=== PATIENT | female | born 1990 | race Caucasian/White ===

== ENCOUNTER 2017-12-08 11:58 | Emergency (ER) | payer MEDICAID ==
[~2017-12-08] VITALS: Ht 160 cm; Wt 71.0 kg
[2017-12-08] MEDS ORDERED: ketorolac trometh inj. 60 MG/2 ML VIAL IM ONE (13:30)
[2017-12-08] MEDS ORDERED: acetaminophen w/codeine (60MG) #4 tablet PO ONE (13:30)
[2017-12-08] MEDS ORDERED: acetaminophen w/codeine (30MG) #3 tablet PO ONE (13:40)
[2017-12-08] MEDS ORDERED: ACET-3067 PO (14:25)
[2017-12-08 14:33] VITALS: BP 131/82
== END 2017-12-08 14:37 | disposition home or self-care (01) ==
LOC: ER 11:59
DX: M54.2 Cervicalgia (principal); G89.29 Other chronic pain; M62.830 Muscle spasm of back; M54.5 Low back pain; M54.6 Pain in thoracic spine; Z88.5 Allergy status to narcotic agent
CPT/HCPCS: 72040; 96372; 99284; J1885

== ENCOUNTER 2018-01-05 17:53 | Emergency (ER) | payer MEDICAID ==
[~2018-01-05] VITALS: Ht 160 cm; Wt 70.0 kg
[~2018-01-05 17:53] MED LIST: ACET-3067 PO
[2018-01-05] MEDS ORDERED: CYCL-1 PO (18:36)
[2018-01-05] MEDS ORDERED: METH4TAB3 PO (18:36)
== END 2018-01-05 18:58 | disposition home or self-care (01) ==
LOC: ER 17:55
DX: M54.2 Cervicalgia (principal); M62.838 Other muscle spasm; M43.6 Torticollis; G89.29 Other chronic pain; Z88.5 Allergy status to narcotic agent
CPT/HCPCS: 99283

== ENCOUNTER 2018-01-25 12:10 | Emergency (ER) | payer MEDICAID ==
[~2018-01-25] VITALS: Ht 160 cm; Wt 69.2 kg
[~2018-01-25 12:10] MED LIST changes: -ACET-3067 PO; +CYCL-1 PO; +METH4TAB3 PO
[2018-01-25 12:16] VITALS: BP 123/84
[2018-01-25] MEDS ORDERED: tetanus & diphtheria toxoid (Td) vaccine 0.5ml IMVAC ONE (14:25)
[2018-01-25] MEDS ORDERED: CEPH-572 PO (14:28)
[2018-01-25] MEDS ORDERED: IBUP-1984 PO (14:28)
[2018-01-25] MEDS ORDERED: TETanus/Pertussis (Acell)/Diphther VAC/PF (Tdap-Adult) 0.5ml syringe IMVAC ONE (14:40)
== END 2018-01-25 14:55 | disposition home or self-care (01) ==
LOC: ER 12:11
DX: S62.633A Displaced fracture of distal phalanx of left middle finger, initial encounter for closed fracture (principal); G89.29 Other chronic pain; Z88.5 Allergy status to narcotic agent; Z79.899 Other long term (current) drug therapy; X58.XXXA Exposure to other specified factors, initial encounter; Y93.89 Activity, other specified; Y92.89 Other specified places as the place of occurrence of the external cause; Y99.8 Other external cause status
CPT/HCPCS: 29130; 73140; 90471; 90715; 99284

== ENCOUNTER 2018-04-09 11:15 | Emergency (ER) | payer MEDICAID ==
[~2018-04-09] VITALS: Ht 160 cm; Wt 70.6 kg
[2018-04-09 12:02] LABS: BASOPHILS % (AUTO) 0.5 % (0-1); EOSINOPHILS # (AUTO) 0.2 X10'3 (0-0.9); EOSINOPHILS % (AUTO) 3.7 % (0-6); HEMATOCRIT 30.7 % (35.0-45.0); LYMPHOCYTES # (AUTO) 1.4 X10'3 (1.1-4.8); LYMPHOCYTES % (AUTO) 20.6 % (21-51); MEAN CORPUSCULAR HGB CONC 32.5 % (33.0-36.5); MEAN CORPUSCULAR VOLUME 67.7 FL (78-98); MEAN PLATELET VOLUME 9.5 FL (7.4-10.4); MONOCYTES # (AUTO) 0.4 X10'3 (0-0.9); MONOCYTES % (AUTO) 5.4 % (2-12); NEUTROPHILS # (AUTO) 4.7 X10'3 (1.8-7.7); NEUTROPHILS % (AUTO) 69.8 % (42-75); PLATELET COUNT 169 X10'3 (140-440); RED BLOOD COUNT 4.54 X10'6 (4.20-5.60); RED CELL DISTRIBUTION WIDTH 15.6 % (11.5-14.5); WHITE BLOOD COUNT 6.7 X10'3 (4.5-11.0)
[2018-04-09 12:07] LABS: CLARITY,URINE CLOUDY (Clear); COLOR,URINE YELLOW (Yellow); GLUCOSE, URINE NEGATIVE (Neg); KETONES,URINE NEGATIVE (Neg); LEUKOCYTE ESTERASE ,URINE MODERATE (Neg); NITRITES, URINE NEGATIVE (Neg); OCCULT BLOOD,URINE NEGATIVE (Neg); PH,URINE 5.5 (4.8-8.0); PROTEIN,URINE NEGATIVE (Neg); UROBILINOGEN,URINE 0.2 E.U/dL (0.2-1.0)
[2018-04-09 12:08] LABS: UA COLLECTION TYPE CLN CATCH MIDSTREAM
[2018-04-09 12:09] LABS: URINE HCG NEGATIVE (NEG)
[2018-04-09 12:11] LABS: PROTHROMBIN TIME 10.7 SECONDS (9.0-12.0)
[2018-04-09 12:15] LABS: SQUAMOUS EPITHELIAL CELL,UR MANY /LPF (FEW)
[2018-04-09 12:16] LABS: BACTERIA,URINE 2+ /HPF (Neg); RBC,URINE 0-2 /HPF (0-2); WBC,URINE 30-50 /HPF (0-4)
[2018-04-09 12:17] LABS: MUCUS STRANDS MODERATE /LPF (Neg)
[2018-04-09 12:26] LABS: ALANINE AMINOTRANSFERASE 20 U/L (12-78); ALBUMIN 3.6 G/DL (3.4-5.0); ALKALINE PHOSPHATASE 52 IU/L (46-116); AMYLASE 63 U/L (25-115); ANION GAP 6 (8-16); ASPARTATE AMINO TRANSFERASE 13 U/L (10-37); BILIRUBIN,TOTAL 0.2 MG/DL (0.1-1.0); BLOOD UREA NITROGEN 11 MG/DL (7-18); BUN/CREATININE RATIO 13.3 (6.6-38.0); CALCIUM 8.8 MG/DL (8.5-10.1); CHLORIDE 106 MMOL/L (99-107); CREATININE 0.83 MG/DL (0.40-0.90); GLUCOSE 100 MG/DL (70-104); LIPASE 110 U/L (73-393); POTASSIUM 3.7 MMOL/L (3.5-5.1); SODIUM 141 MMOL/L (135-145); TOTAL PROTEIN 7.3 G/DL (6.4-8.2); eGFR 81 ML/MIN
[2018-04-09 12:28] LABS: ANISOCYTOSIS 1+; MICROCYTOSIS 2+; PLATELET ESTIMATE NORMAL; ROULEAUX 1+
[2018-04-09 12:29] LABS: ELLIPTOCYTES FEW; HYPOCHROMASIA 1+; POLYCHROMASIA FEW
[2018-04-09] MEDS ORDERED: PANT-47 PO (15:50)
[2018-04-09] MEDS ORDERED: BISA-155 PO (15:50)
[2018-04-09] MEDS ORDERED: POLY119P2 PO (15:50)
[2018-04-09 16:02] VITALS: BP 120/80
[2018-04-11] MEDS ORDERED: ketorolac trometh inj. 60 MG/2 ML VIAL IM ONE (06:55)
[2018-04-11] MEDS ORDERED: acetaminophen 325mg tablet PO ONE (06:55)
== END 2018-04-09 16:05 | disposition home or self-care (01) ==
LOC: ER 11:15
DX: R10.84 Generalized abdominal pain (principal); G89.29 Other chronic pain; Z88.0 Allergy status to penicillin; Z88.5 Allergy status to narcotic agent; Z79.899 Other long term (current) drug therapy
CPT/HCPCS: 36415; 80053; 81001; 81025; 82150; 83690; 85025; 85610; 99284

== ENCOUNTER 2019-06-08 17:45 | Emergency (ER) | payer OTHER, MEDICAID ==
[~2019-06-08] VITALS: Ht 160 cm; Wt 75.6 kg
[~2019-06-08 17:45] MED LIST changes: +BISA-155 PO; +PANT-47 PO; +POLY119P2 PO
[2019-06-08] MEDS ORDERED: orphenadrine citrate 60mg/2ml inj. IM ONE (19:40)
[2019-06-08] MEDS ORDERED: ketorolac tromethamine 15mg/ml inj. IM ONE (19:40)
--- NOTE | 2019-06-08 19:59 | NUR ---
pt to CT
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
[2019-06-08 21:07] VITALS: BP 130/81
--- NOTE | 2019-06-08 21:08 | NUR ---
pt is playing on phone, said neck/upper back pain decreased to 6/10,
[2019-06-08] MEDS ORDERED: METH-360 PO (21:32)
[2019-06-08] MEDS ORDERED: NAPR-56 PO (21:32)
== END 2019-06-08 21:56 | disposition home or self-care (01) ==
LOC: ER 17:46
DX: S29.019A Strain of muscle and tendon of unspecified wall of thorax, initial encounter (principal); M54.5 Low back pain; G89.29 Other chronic pain; Z88.0 Allergy status to penicillin; Z88.5 Allergy status to narcotic agent; Z79.899 Other long term (current) drug therapy; V49.9XXA Car occupant (driver) (passenger) injured in unspecified traffic accident, initial encounter; Y93.89 Activity, other specified; Y92.488 Other paved roadways as the place of occurrence of the external cause; Y99.8 Other external cause status
CPT/HCPCS: 72074; 96372; 99283; J1885; J2360

== ENCOUNTER 2023-05-08 20:25 | Emergency (ER) | payer MEDICAID, OTHER ==
[~2023-05-08] VITALS: Ht 160 cm; Wt 83.5 kg
[~2023-05-08 20:25] MED LIST changes: +METH-360 PO
[2023-05-08] MEDS ORDERED: ketorolac trometh inj. 60 MG/2 ML VIAL IM ONE (22:50)
[2023-05-09 00:11] VITALS: BP 114/72
== END 2023-05-09 00:13 | disposition home or self-care (01) ==
LOC: ER 20:25
DX: M25.511 Pain in right shoulder (principal); G89.29 Other chronic pain; M54.9 Dorsalgia, unspecified; R55 Syncope and collapse; W19.XXXA Unspecified fall, initial encounter; Y93.89 Activity, other specified; Y92.89 Other specified places as the place of occurrence of the external cause; Y99.8 Other external cause status
CPT/HCPCS: 73030; 96372; 99283; J1885

== ENCOUNTER 2023-12-26 02:16 | Emergency (ER) | payer MEDICAID, OTHER ==
[~2023-12-26] VITALS: Ht 157.5 cm; Wt 77.3 kg
[2023-12-26 02:18] VITALS: BP 151/98; PULSE 99; RESP 18; TEMP 98.2; O2SAT 99
== END 2023-12-26 07:28 | disposition left against medical advice (07) ==
LOC: ER 02:16
DX: M54.9 Dorsalgia, unspecified (principal); R11.0 Nausea; Z53.21 Procedure and treatment not carried out due to patient leaving prior to being seen by health care provider
CPT/HCPCS: 99281

== ENCOUNTER 2024-10-28 10:32 | Emergency (ER) | payer OTHER, MEDICAID ==
[~2024-10-28] VITALS: Ht 157.5 cm; Wt 77.3 kg
[2024-10-28 10:34] VITALS: BP 134/91; PULSE 95; TEMP 97.5; O2SAT 99
[2024-10-28 12:38] VITALS: RESP 18
== END 2024-10-28 12:40 | disposition home or self-care (01) ==
LOC: ER 10:32
DX: M25.512 Pain in left shoulder (principal); G89.29 Other chronic pain; Z88.0 Allergy status to penicillin; Z88.5 Allergy status to narcotic agent; Z79.899 Other long term (current) drug therapy
CPT/HCPCS: 73030; 99283

== ENCOUNTER 2024-12-25 00:41 | Emergency (ER) | payer OTHER, MEDICAID ==
[~2024-12-25] VITALS: Ht 160 cm; Wt 69.3 kg
[2024-12-25 00:50] VITALS: TEMP 98.5
[2024-12-25 02:08] LABS: BASOPHILS # (AUTO) 0.1 X10'3 (0-0.2); BASOPHILS % (AUTO) 0.7 % (0-1); EOSINOPHILS # (AUTO) 0.4 X10'3 (0-0.9); EOSINOPHILS % (AUTO) 4.2 % (0-6); HEMATOCRIT 37.7 % (35.0-45.0); LYMPHOCYTES # (AUTO) 2.3 X10'3 (1.1-4.8); LYMPHOCYTES % (AUTO) 27.8 % (21-51); MEAN CORPUSCULAR HEMOGLOBIN 26.5 PG (27.0-31.0); MEAN CORPUSCULAR HGB CONC 34.4 g/dL (33.0-36.5); MEAN CORPUSCULAR VOLUME 76.9 FL (78-98); MEAN PLATELET VOLUME 9.3 FL (7.4-10.4); MONOCYTES # (AUTO) 0.5 X10'3 (0-0.9); MONOCYTES % (AUTO) 5.7 % (2-12); NEUTROPHILS # (AUTO) 5.1 X10'3 (1.8-7.7); NEUTROPHILS % (AUTO) 61.6 % (42-75); PLATELET COUNT 171 X10'3 (140-440); RED CELL DISTRIBUTION WIDTH 14.2 % (11.5-14.5); WHITE BLOOD COUNT 8.3 X10'3 (4.5-11.0)
[2024-12-25 02:17] LABS: ALANINE AMINOTRANSFERASE 24 U/L (12-78); ALBUMIN 3.8 G/DL (3.4-5.0); ALKALINE PHOSPHATASE 57 IU/L (46-116); ANION GAP 5 (8-16); ASPARTATE AMINO TRANSFERASE 15 U/L (10-37); BILIRUBIN,TOTAL 0.2 MG/DL (0.1-1.0); BLOOD UREA NITROGEN 11 MG/DL (7-18); BUN/CREATININE RATIO 13.6 (10.0-20.0); CALCIUM 9.2 MG/DL (8.5-10.1); CHLORIDE 107 MMOL/L (99-107); CREATININE 0.81 MG/DL (0.40-0.90); GLUCOSE 91 MG/DL (70-104); LIPASE 45 U/L (16-77); POTASSIUM 4.5 MMOL/L (3.5-5.1); SODIUM 142 MMOL/L (135-145); TOTAL CARBON DIOXIDE 30.5 MMOL/L (24-32); TOTAL PROTEIN 7.6 G/DL (6.4-8.2); eCRCL 79 ML/MIN; eGFR 80 ML/MIN
[2024-12-25 03:13] LABS: BILIRUBIN,URINE NEGATIVE (Neg); CLARITY,URINE SLIGHTLY CLOUDY (Clear); COLOR,URINE YELLOW (Yellow); GLUCOSE, URINE NEGATIVE (Neg); KETONES,URINE NEGATIVE (Neg); LEUKOCYTE ESTERASE ,URINE SMALL (Neg); NITRITES, URINE NEGATIVE (Neg); OCCULT BLOOD,URINE NEGATIVE (Neg); PROTEIN,URINE NEGATIVE (Neg); URINE HCG NEGATIVE (NEG); UROBILINOGEN,URINE 0.2 E.U/dL (0.2-1.0)
[2024-12-25 03:22] LABS: RBC,URINE NONE SEEN /HPF (0-2); SQUAMOUS EPITHELIAL CELL,UR MANY /LPF (FEW); UA COLLECTION TYPE CLN CATCH MIDSTREAM
[2024-12-25 03:23] LABS: BACTERIA,URINE 2+ /HPF (Neg); MUCUS STRANDS MODERATE /LPF (Neg)
[2024-12-25] MEDS ORDERED: BISA-79 PO (03:31)
[2024-12-25 04:01] VITALS: BP 127/92; PULSE 76; RESP 14; O2SAT 99
== END 2024-12-25 04:03 | disposition home or self-care (01) ==
LOC: ER 00:41
DX: R10.84 Generalized abdominal pain (principal); G89.29 Other chronic pain; M54.9 Dorsalgia, unspecified; Z88.0 Allergy status to penicillin; Z88.5 Allergy status to narcotic agent; Z79.899 Other long term (current) drug therapy
CPT/HCPCS: 36415; 80053; 81001; 81025; 83690; 85025; 99283

== ENCOUNTER 2025-07-03 23:06 | Emergency (ER) | payer BC, OTHER ==
[~2025-07-03] VITALS: Ht 157.5 cm; Wt 76.5 kg
[~2025-07-03 23:06] MED LIST changes: +BISA-79 PO
[2025-07-03 23:24] VITALS: BP 146/65; PULSE 79; RESP 15; O2SAT 99
--- NOTE | 2025-07-04 00:14 | Physician Documentation ---
History of Present Illness ~ Chief Complaint: Abrasion Stated Complaint: LEG LAC Time Seen by MD: 23:32 Primary Medical Doctor: [facility] HPI Patient is a 35-year-old female that presents to the emergency department for evaluation of an abrasion sustained when a board scraped down the front of her leg yesterday. Patient reports that the abrasion has continued to look more inflamed and it is very painful. Patient reports that she did not sleep last night because he abrasion hurts so badly. Medication Reconciliation Allergies: Coded Allergies: Penicillins (Unverified Allergy, Unknown, RASH ITCHING, 07/03/25) hydrocodone (Verified Allergy, Unknown, 07/03/25) Uncoded Allergies: PENCILLIN (Allergy, Unknown, 12/08/17) Scheduled Bisacodyl (Dulcolax), 2 TAB PO ONCE Bisacodyl (Dulcolax), 4 TAB PO ONCE Methocarbamol (Robaxin-750), 1 TAB PO Q12H Methylprednisolone (Medrol), 1 DOSPAK PO UD Pantoprazole Sodium (PROTONIX tablet), 1 TAB PO DAILY Polyethylene Glycol 3350 (Miralax), 1 SCOOP PO DAILY Scheduled PRN Cyclobenzaprine* (Cyclobenzaprine*), 1 TABLET PO BID PRN for muscle spasms Past Medical History Past Medical History: Chronic Back Pain Past Surgical History: no surgical history Alcohol Use: None Drug Use: none Lives with: Family Lives In: Assisted Care Occupation: employed, retired Review of Systems ROS As stated above in the HPI, otherwise all systems are reviewed and negative. Physical Exam Vital Signs: Temperature: 96.8, Source: Temporal, Heart Rate: 79, Respiratory Rate: 15, BP: 146/65, Pulse Oximetry: 99, Weight: 76.500 Physical Exam VITALS: Reviewed and as above. GENERAL: Alert, no apparent distress. HEENT: Normocephalic, atraumatic, PERRL, EOMI, dry mucosa, no erythema RESPIRATORY: Lungs clear, normal breath sounds, no respiratory distress. CHEST: No accessory muscle use, no retractions CV: Regular rate, rhythm, no edema, no murmur, No: JVD GI: Soft, non-tender, bowels sounds present, no rebound, guarding, or rigidity BACK: No CVA tenderness, or swelling MUSCULOSKELETAL No deformities, no edema SKIN: Warm and dry, abrasions anterior portion of left lower extremity, erythema and mild edema noted NEURO: Oriented x4, No motor or sensory deficit PSYCH: Normal mood and affect, no agitation Progress Results/Orders Results/Orders Orders - SURY LUTZ [employer] Bacitracin Ointment (Bacitracin Ointment (07/04/25 08:00) Cephalexin Capsule (Keflex Capsule) (07/04/25 00:10) Vital Signs 07/03/25 23:24 Temp 96.8 Pulse 79 Resp 15 B/P (MAP) 146/65 Pulse Ox 99 Medical Decision Making Findings This patient presents with initial presentation of local erythema, warmth, swelling concerning for cellulitis. Sensitivity/pain to light touch around the erythematous area. No lymphangitic spread visible and no fluid pockets or fluct uance concerning for abscess noted. Low concern for osteomyelitis or DVT. No immune compromise, bullae, pain out of proportion, or rapid progression concerning for necrotizing fasciitis. Patient to be discharged home with keflex with follow up with their PMD. Differential Dx:Considerations: Include: Abscess, AIDS/HIV, Anthrax (cutaneous), Atopic dermatitis, Candidiasis, Contact dermatitis, Drug reaction, Erythema multiforme, Erysipelas, Gangrene, Herpes zoster, Herpes simplex, Hidradenitis suppurativa, Impetigo, Intertrigo, Lymes disease, Molluscum contagiosum, Osteomyelitis, Pediculosis, Pityriasis rosea, Psoriaisis, RMSF, Rosacea, Scabies, Scarlet fever, Tinea, Urticaria, Varicella, Viral exanthema, Other Departure Disposition: 01 HOME / SELF CARE / HOMELESS Impression: Primary Impression: Abrasion Additional Impression: Superficial bruising Condition: Stable Discharge Instructions: Abrasion, [id number] Additional Instructions: This patient presents with initial presentation of local erythema, warmth, swelling concerning for cellulitis. Sensitivity/pain to light touch around the erythematous area. No lymphangitic spread visible and no fluid pockets or fluctuance concerning for abscess noted. Low concern for osteomyelitis or DVT. No immune compromise, bullae, pain out of proportion, or rapid progression concerning for necrotizing fasciitis. Patient to be discharged home with keflex with follow up with their PMD. Please take medication as prescribed. Please follow up with her primary care provider. Please return to the emergency department if you have any worsening or recurrent symptoms or any additional concerning symptoms that we discussed here today. Referrals: NO PRIMARY CARE PROVIDER (PCP) Prescriptions Cephalexin*Monohydrate* (Keflex*) 500 Mg Capsule 1 CAP PO QID for 7 Days, #28 CAP Prov: SURY LUTZ 07/04/25 Education Educated: Patient Educated regarding: diagnosis, treatment, need for follow up Signature Scribe Signature: A Attestation: Scribed for Sury Lutz by SHRUTHI Ac . 07/04/25 00:16 SURY LUTZ Jul 04, 2025 00:14
[2025-07-04] MEDS ORDERED: CEPH-585 PO (00:16)
[2025-07-04 00:28] VITALS: TEMP 96.8
[2025-07-04] MEDS ORDERED: bacitracin 15gm ointment TP SCH (08:00)
== END 2025-07-04 00:33 | disposition home or self-care (01) ==
LOC: ER 23:06
DX: S80.12XA Contusion of left lower leg, initial encounter (principal); Z88.0 Allergy status to penicillin; Z88.5 Allergy status to narcotic agent; X58.XXXA Exposure to other specified factors, initial encounter; Y93.89 Activity, other specified; Y92.89 Other specified places as the place of occurrence of the external cause; Y99.8 Other external cause status
CPT/HCPCS: 99283; A6258; A6449